=== PATIENT | female | born 1995 | race Caucasian/White ===

== ENCOUNTER 2021-12-14 04:10 | Emergency (ER) | payer MEDICAID, OTHER ==
[~2021-12-14] VITALS: Ht 165.1 cm; Wt 67.0 kg
[2021-12-15 00:32] LABS: CLARITY URINE CLEAR (CLEAR); COLOR URINE YELLOW (YELLOW); KETONES URINE TRACE (NEGATIVE); LEUKOCYTE ESTERASE URINE 1+ (NEGATIVE); NITRITE URINE NEGATIVE (NEGATIVE); OCCULT BLOOD URINE NEGATIVE (NEGATIVE); PH URINE 5.5 (4.5-8.0); PROTEIN URINE NEGATIVE (NEGATIVE); SPECIFIC GRAVITY URINE 1.025 (1.005-1.030); UROBILINOGEN URINE 0.2 E.U./dL (0.2-1.0)
[2021-12-15] MEDS ORDERED: ONDANSETRON HCL 4MG/2ML INJ IV STA (02:07)
[2021-12-15] MEDS ORDERED: MORPHINE SULFATE 4 MG/ML CPJ (NOT FOR IM USE) IV STA (02:07)
[2021-12-15] MEDS ORDERED: SODIUM CHLORIDE 0.9% 1,000 ML IV ONE (02:15)
[2021-12-15 03:31] LABS: CHLORIDE 105 mEq/L (98-107)
[2021-12-15 03:42] LABS: HEMATOCRIT. 32.2 % (36.0-48.0); HEMOGLOBIN. 10.3 g/dL (12.0-16.0); MEAN CORPUSCULAR HEMOGLOBIN 22.2 pg (28.0-32.0); MEAN CORPUSCULAR VOLUME 69.4 fL (81.0-99.0); MEAN PLATELET VOLUME 9.9 fl (7.4-10.4); PLATELET 202 x1000/uL (130-400); RED BLOOD CELL COUNT 4.63 mill/uL (4.2-5.4); RED CELL DISTRIBUTION WIDTH 16.6 % (11.6-14.6)
[2021-12-15 05:01] LABS: HCG SCREEN NEGATIVE
[2021-12-15] MEDS ORDERED: CEPH500T MT (05:39)
[2021-12-15] MEDS ORDERED: IBUP-2028 MT (05:39)
[2021-12-15 06:00] VITALS: BP 111/52
[2021-12-15 08:28] LABS: PLATELET ESTIMATE NORMAL
== END 2021-12-15 06:08 | disposition home or self-care (01) ==
LOC: ER 12-15 04:10
DX: N39.0 Urinary tract infection, site not specified (principal)
CPT/HCPCS: 36415; 74176; 76705; 80053; 81003; 81025; 83690; 84703; 85025; 96361; 96374; 96375; 99285; J2270; J2405; J7030

== ENCOUNTER 2024-01-23 20:46 | Emergency (ER) | payer MEDICAID, OTHER ==
[~2024-01-23] VITALS: Ht 165.1 cm; Wt 68.0 kg
[~2024-01-23 20:46] MED LIST: CEPH500T MT; IBUP-2028 MT
[2024-01-23 21:05] VITALS: TEMP 98.2; O2SAT 100
[2024-01-23] MEDS: KETOROLAC 15MG/ML VIAL IM ONE (23:07)
[2024-01-23 23:14] LABS: CLARITY URINE CLOUDY (CLEAR); COLOR URINE YELLOW (YELLOW); GLUCOSE URINE NEGATIVE (NEGATIVE); KETONES URINE NEGATIVE (NEGATIVE); LEUKOCYTE ESTERASE URINE 3+ (NEGATIVE); NITRITE URINE NEGATIVE (NEGATIVE); OCCULT BLOOD URINE NEGATIVE (NEGATIVE); PH URINE 6.5 (4.5-8.0); PROTEIN URINE TRACE (NEGATIVE); SPECIFIC GRAVITY URINE 1.024 (1.005-1.030)
[2024-01-23 23:25] LABS: BACTERIA URINE 3+; RBC URINE 0-2 /hpf (0-2); SQUAMOUS EPITHELIAL CELL URINE 1+ /lpf (RARE/1+)
[2024-01-24] MEDS ORDERED: PNV1TABL76 MT (00:29)
[2024-01-24 00:36] VITALS: BP 129/81; PULSE 84; RESP 20
[2024-01-24] MEDS ORDERED: CEPH500T MT (00:40)
== END 2024-01-24 00:39 | disposition home or self-care (01) ==
LOC: ER 20:46
DX: O23.31 Infections of other parts of urinary tract in pregnancy, first trimester (principal); N39.0 Urinary tract infection, site not specified; Z3A.01 Less than 8 weeks gestation of pregnancy
CPT/HCPCS: 99285; 76801; 81003; 81025; 84702; 36415; 76817; 96372; J1885

== ENCOUNTER 2024-02-08 16:03 | Emergency (ER) | payer OTHER ==
[~2024-02-08] VITALS: Ht 165.1 cm; Wt 68.0 kg
[~2024-02-08 16:03] MED LIST changes: +PNV1TABL76 MT
[2024-02-08 16:16] VITALS: TEMP 98.6; O2SAT 100
[2024-02-08 17:07] LABS: BASOPHILS % 0.6 % (0.0-2.0); EOSINOPHILS % 0.3 % (0.0-5.0); HEMATOCRIT. 32.1 % (36.0-48.0); LYMPHOCYTES % 15.7 % (20.0-50.0); MEAN CORPUSCULAR HEMOGLOBIN 21.4 pg (28.0-32.0); MEAN CORPUSCULAR HGB CONC 31.1 g/dL (31.0-37.0); MEAN CORPUSCULAR VOLUME 68.9 fL (81.0-99.0); MEAN PLATELET VOLUME 9.1 fl (7.4-10.4); MONOCYTES % 4.8 % (2.0-8.0); NEUTROPHILS % 78.6 % (40.0-76.0); PLATELET 231 x1000/uL (130-400); RED BLOOD CELL COUNT 4.65 mill/uL (4.2-5.4); RED CELL DISTRIBUTION WIDTH 23.4 % (11.6-14.6); WHITE BLOOD COUNT 6.8 x1000/uL (4.5-11.0)
[2024-02-08 17:13] LABS: DIFFERENTIAL COMMENT 1
[2024-02-08 17:14] LABS: ADD RBC MORPHOLOGY YES
[2024-02-08 17:15] LABS: CHLORIDE 102 mEq/L (98-107); POTASSIUM 3.4 mEq/L (3.5-5.1); SODIUM 134 mEq/L (136-145)
[2024-02-08 17:16] LABS: CALCIUM 8.8 mg/dL (8.7-10.4); CARBON DIOXIDE 25 mEq/L (21-32)
[2024-02-08 17:19] LABS: HCG SCREEN POSITIVE
[2024-02-08 17:21] LABS: CREATININE 0.7 mg/dL (0.6-1.0); GLUCOSE 85 mg/dL (70-105); UREA NITROGEN BLOOD 5 mg/dL (9-23)
[2024-02-08 17:48] LABS: HYPOCHROMASIA 2+; MICROCYTOSIS 3+; PLATELET ESTIMATE NORMAL
[2024-02-08 17:49] LABS: ANISOCYTOSIS 2+; OVALOCYTES 1+
[2024-02-08] MEDS: IBUPROFEN 600MG TABLET PO ONE (17:52)
[2024-02-08 18:28] LABS: CLARITY URINE CLEAR (CLEAR); COLOR URINE RED (YELLOW); GLUCOSE URINE NEGATIVE (NEGATIVE); KETONES URINE TRACE (NEGATIVE); LEUKOCYTE ESTERASE URINE TRACE (NEGATIVE); NITRITE URINE NEGATIVE (NEGATIVE); OCCULT BLOOD URINE 3+ (NEGATIVE); PROTEIN URINE 2+ (NEGATIVE); SPECIFIC GRAVITY URINE 1.006 (1.005-1.030); UROBILINOGEN URINE 0.2 E.U./dL (0.2-1.0)
[2024-02-08 19:07] LABS: BACTERIA URINE 1+; RBC URINE 50-100 /hpf (0-2); SQUAMOUS EPITHELIAL CELL URINE 1+ /lpf (RARE/1+)
[2024-02-08 19:08] LABS: WBC URINE 0-2 /hpf (0-2)
[2024-02-08] MEDS: ACETAMINOPHEN 325MG TABLET PO PRN (19:22)
[2024-02-08 21:55] VITALS: BP 106/62; PULSE 70; RESP 14
== END 2024-02-08 22:22 | disposition home or self-care (01) ==
LOC: ER 16:03
DX: O03.9 Complete or unspecified spontaneous abortion without complication (principal); Z3A.09 9 weeks gestation of pregnancy
CPT/HCPCS: 80048; 81003; 81025; 84703; 84702; 83690; 85025; 86850; 86900; 86901; 36415; 76801; 99284; Z7610; 99283

== ENCOUNTER 2024-06-21 12:43 | Emergency (ER) | payer MEDICAID, OTHER | END 2024-06-21 22:57 | disposition home or self-care (01) | LOC: ER 12:43 | DX: R30.0 Dysuria (principal) | CPT/HCPCS: 99281 ==